=== PATIENT | male | born 1975 | race African-American/Black ===

== ENCOUNTER 2021-05-02 20:33 | Emergency (ER) | payer MEDICAID ==
[~2021-05-02] VITALS: Ht 175.3 cm; Wt 118.2 kg
[2021-05-02 21:33] LABS: BASOPHILS % (AUTO) 1.3 % (0.0-2.0); EOSINOPHILS % (AUTO) 2.4 % (1.0-6.0); HEMATOCRIT 43.3 % (41-53); HEMOGLOBIN 14.4 g/dL (13.5-17.5); LYMPHOCYTES # (AUTO) 3.7 K/uL (1.0-4.8); LYMPHOCYTES % (AUTO) 42.3 % (22.0-44.0); MEAN CORPUSCULAR HEMOGLOBIN 30.5 pg (26.0-34.0); MEAN CORPUSCULAR HGB CONC 33.3 G/dL (31.0-37.0); MEAN CORPUSCULAR VOLUME 92 fL (80-100); MONOCYTES # (AUTO) 0.7 K/uL (0.1-1.0); MONOCYTES % (AUTO) 7.9 % (2.0-9.0); NEUTROPHILS # (AUTO) 4.1 K/uL (1.8-7.7); NEUTROPHILS % (AUTO) 46.1 % (40.0-70.0); PLATELET COUNT (AUTO) 248 K/uL (150-450); RED BLOOD CELL COUNT(AUTO) 4.73 MIL/uL (4.50-5.90); RED CELL DISTRIBUTION WIDTH 14.1 % (11.5-14.5)
[2021-05-02 21:38] LABS: ANION GAP 9 mmol/L (8-16); CARBON DIOXIDE 30 mmol/L (22-29); CHLORIDE 103 mmol/L (98-107); CREATININE 1.06 mg/dL (0.60-1.30); GLOMERULAR FILTR. RATE CALC > 60 mL/min (>60); GLUCOSE,RANDOM 93 mg/dL (70-110); POTASSIUM 4.2 mmol/L (3.5-5.1); SODIUM SERUM 142 mmol/L (136-145); UREA NITROGEN, BLOOD 11 mg/dL (7-18)
[2021-05-02 21:44] LABS: ALANINE AMINOTRANSFERASE 33 U/L (12-78); ALBUMIN 3.8 g/dL (3.4-5.0); ALKALINE PHOSPHATASE 61 U/L (46-116); ASPARTATE AMINOTRANSFERASE 16 U/L (15-37); BILIRUBIN,TOTAL 0.3 mg/dL (0.1-1.0); TOTAL PROTEIN, SERUM 7.6 g/dL (6.4-8.2)
[2021-05-02 22:20] LABS: LIPASE 166 U/L (73-393)
[2021-05-02] MEDS ORDERED: KETOROLAC TROMETHAMINE 30 MG/ML VIAL IVP ONE (22:30)
[2021-05-02] MEDS ORDERED: FAMOTIDINE 10 MG/ML 2 ML VIAL IVP ONE (22:30)
[2021-05-02] MEDS ORDERED: MAG HYDROX/AL HYDROX/SIMETH 30 ML SUSP UDCUP PO ONE (22:30)
[2021-05-02] MEDS ORDERED: SODIUM CHLORIDE 0.9% 1,000 ML IV ONE (22:30)
[2021-05-02] MEDS ORDERED: ACETAMINOPHEN 500 MG TABLET PO ONE (22:30)
[2021-05-02] MEDS ORDERED: SODIUM CHLORIDE 0.9% 100 ML ONE (22:42)
[2021-05-02] MEDS ORDERED: IOHEXOL 350 MG/ML 150 ML VIAL ONE (22:42)
[2021-05-02 23:28] LABS: BILIRUBIN,URINE NEGATIVE (NEGATIVE); GLUCOSE, URINE (UA) NEGATIVE (NEGATIVE); KETONES,URINE NEGATIVE (NEGATIVE); LEUKOCYTE ESTERASE ,URINE NEGATIVE (NEGATIVE); NITRATE,URINE NEGATIVE (NEGATIVE); OCCULT BLOOD,URINE NEGATIVE (NEGATIVE); PROTEIN,URINE NEGATIVE (NEGATIVE); SPECIFIC GRAVITIY, URINE 1.017 (1.003-1.030)
[2021-05-03 01:26] VITALS: BP 156/98
[2021-05-03 05:35] LABS: APPEARANCE,URINE CLEAR (CLEAR)
== END 2021-05-03 01:51 | disposition home or self-care (01) ==
LOC: EMS 20:37
DX: R07.89 Other chest pain (principal); R10.31 Right lower quadrant pain; F12.90 Cannabis use, unspecified, uncomplicated; F17.210 Nicotine dependence, cigarettes, uncomplicated
CPT/HCPCS: 36415; 71045; 74177; 80053; 81003; 83690; 84484; 85025; 93005; 96361; 96374; 96375; 99285; J1885; J3490; J7030; J7050; Q9967